=== PATIENT | male | born 1985 | race Caucasian/White ===

== ENCOUNTER 2023-08-17 06:40 | Outpatient (OUT) | payer OTHER, SELFPAY ==
[2023-08-17 07:13] LABS: Basophils Percent Auto 0.3 % (0.2-2.0); Eosinophils Absolute Auto 0.2 10^3/uL (0.0-0.7); Eosinophils Percent Auto 3.6 % (0.9-7.0); Hemoglobin 14.5 g/dL (14.0-18.0); Immature Granulocytes Abs Auto 0.02 10^3/uL (0.00-0.03); Immature Granulocytes Pct Auto 0.3 % (0.0-0.5); Lymphocytes Percent Auto 35.1 % (20.5-60.0); Mean Corpuscular HGB Conc 32.2 g/dL (29.9-35.2); Mean Corpuscular Hemoglobin 28.5 pg (25.9-34.0); Mean Corpuscular Volume 88.6 fL (80.0-94.0); Mean Platelet Volume 11.8 fL (9.5-13.5); Monocytes Absolute Auto 0.4 10^3/uL (0.3-0.8); Monocytes Percent Auto 7.3 % (1.7-12.0); Neutrophils Absolute Auto 3.1 10^3/uL (1.4-6.5); Neutrophils Percent Auto 53.4 % (43.0-75.0); Platelet Count 225 10^3/uL (150-450); Red Blood Count 5.08 10^6/uL (4.70-6.10); Red Cell Distribution Width 12.4 % (11.0-15.0); White Blood Count 5.8 10^3/uL (4.0-11.0)
[2023-08-17 07:27] LABS: Estimated Average Glucose 117 mg/dL; Glycohemoglobin A1C 5.7 % (4.5-6.2)
[2023-08-17 07:34] LABS: Alanine Aminotransferase 18 U/L (16-63); Albumin Globulin Ratio 1.1; Albumin Level 3.9 g/dL (3.4-5.0); Alkaline Phosphatase 50 U/L (46-116); Aspartate Amino Transferase 12 U/L (15-37); BUN Creatinine Ratio 11.1; Bilirubin Total 0.9 mg/dL (0.2-1.0); Calcium 9.3 mg/dL (8.5-10.1); Carbon Dioxide 27.9 mmol/L (21.0-32.0); Chloride 106 mmol/L (98-107); Chol HDL Ratio 3.5; Cholesterol 176 mg/dL (<=200); Estimated GFR (African America >60 (>=60); Estimated GFR (Non-African Ame >60 (>=60); Globulin 3.5 g/dL; Glucose 113 mg/dL (74-106); HDL Cholesterol 51 mg/dL (40-60); Potassium 3.9 mmol/L (3.5-5.1); Sodium 143 mmol/L (136-145); Total Protein 7.4 g/dL (6.4-8.2); Triglycerides 115 mg/dL (<=150)
[2023-08-18 09:11] LABS: HCV Ab Non Reactive (Non Reactive)
[2023-08-18 10:07] LABS: HIV Ab/p24 Ag Screen Non Reactive (Non Reactive)
== END 2023-08-17 06:41 | disposition home or self-care (01) ==
LOC: LAB 06:45
PROVIDERS: PCP Nurse Practitioner Primary Care; Visit Provider Nurse Practitioner Primary Care
DX: Z00.00 Encounter for general adult medical examination without abnormal findings (principal); Z11.59 Encounter for screening for other viral diseases; Z11.4 Encounter for screening for human immunodeficiency virus [HIV]; Z13.6 Encounter for screening for cardiovascular disorders
CPT/HCPCS: 36415; 80053; 80061; 83036; 85025; 86803; 87389

== ENCOUNTER 2024-08-06 17:06 | Outpatient (OUT) | payer OTHER, SELFPAY ==
--- OUTSIDE RECORDS SUMMARY | 2024-08-06 17:23 | XMS_ITS | CCD ---
Author Organization [facility] Care Team Providers Care Artificial Fly Tier Name Role Phone Unavailable Primary Care Provider Unavailabl e Medications Completed/Discontinued Medications Medication Drug Class(es) Dates Sig (Normalized) Sig (Original) escitalopram 10 mg oral tablet (1 source) Serotonin Reuptake Inhibitor Start: 07-25-2021 escitalopram oxalate (LEXAPRO) 10 mg tablet omeprazole 20 mg delayed release oral capsule (1 source) Proton Pump Inhibitor Start: 07-26-2021 omeprazole (PRILOSEC) 20 mg capsule zolpidem tartrate 10 mg oral tablet (1 source) gamma-Aminobutyri c Acid-ergic Agonist Start: 07-26-2021 zolpidem (AMBIEN) 10 mg Take 10 mg by mouth. 0 07/26/2021 Active Comment on above: Take 10 mg by mouth. Problems Problem Classification Problem Date Documented Da te Episodic/Chronic Cardiac and circulatory congenital anomalies (1 source) Congenital vascular malformation; Translations: [Congenital malformation of peripheral vascular system, unspecified] Chronic Results Test Name Value Interpretation Reference Range Facil jeff HILLon 09-08-2021 CNOV Office Visit (OTMNCA ) FREDI COLON ([id number]) 1985 M Date Time Provider Department 09/08/21 11:30 AM FADI STRONG OTMNDIONI During your visit today, we recorded the following information about you: Pulse Blood pressure Weight Height 72/minute 133/83 94.1 kg 1.778 m Ayah Winn Ma 09/08/2021 10:19 AM Signed Tobacco Use: 1 packs/day Quit 02/26/2021. Types: Cigarettes Was smoking cessation packet given? N/A - Patient is a non-smoker or quit >1 year ago. Was a referral initiated?N/A Patient is a non-smoker Fadi Strong MD 10/22/2021 10:24 PM Signed CC: Patient presents with: New Patient: Tongue mass Consultation requested by Dr. Will Orellana on 08/21/21 for an opinion regarding right tongue mass. My final recommendations will be communicated back to the requesting physician by way of shared medical record or letter via US mail HPI: Fredi Colon is a 35 year old male with PMH GERD, current smoker (1 cigar per month), who presents with tongue mass. Patient stated that the mass was a hemangioma present at . The mass was formally evaluated when he was age 9, and at that time he was told there was no concern for malignancy. He states the mass has grown in size as he's grown . He is not sure if the mass has enlarged recently because it has been present since and he has adapted well to it. He does endorse itchiness in the throat with prolonged talking which does not interfere with his daily functioning. He states no other symptoms. He denies pain, discomfort, bleeding, dysphagia, odynophagia, sore throat, ear pain, dysgeusia, dyspnea. He states that nothing about the mass bothers him. He accidentally bites it once a month on average, which does not cause any bleeding. He says he doesn't have great sleep and does snore, but was never tested for sleep apnea. He does not have any other vascular lesions on his body. He takes Prilosec daily for GERD, which manages reflux well. SocHx: current smoker (1 cigar per month), no other chewing or dipping tobacco. 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 Father recently from lymphoma. FamHx: no personal or family history of head and neck cancers. No personal history of radiation treatment. Diet: full regular diet ALLERGIES No Known Allergies Current Outpatient Medications on File Prior to Visit Medication Sig - escitalopram oxalate (LEXAPRO) 10 mg tablet - omeprazole (PRILOSEC) 20 mg capsule - zolpidem (AMBIEN) 10 mg Take 10 mg by mouth. (Patient not taking: Reported on 09/08/2021) No current facility-administered medications on file prior to visit. No past medical history on file. PAST SURGICAL HISTORY Procedure Laterality Date - UPPER ARM/ELBOW SURGERY UNLISTED Right 1994 Social History Tobacco Use - Smoking status: Former Smoker Packs/day: 1.00 Types: Cigarettes Start date: 09/08/2002 Quit date: 02/26/2021 Years since quittin.5 - Smokeless tobacco: Never Used Vaping Use - Vaping Use: Never used Substance Use Topics - Alcohol use: Not Currently Comment: 2 months since last drink - Drug use: Never Review of Systems: GENERAL: No weight loss, malaise or fevers. HEENT: Negative for frequent or significant headaches, No changes in hearing or vision, no nose bleeds or other nasal problems. Tongue mass stable in size since . NECK: Negative for goiter, pain or significant neck swelling RESPIRATORY: Negative for cough, hemoptysis, wheezing, COPD, dyspnea or shortness of breath CARDIOVASCULAR: Negative for chest pain, leg swelling, hypertension, CHF or palpitations The remainder of the review of systems is negative. PHYSICAL EXAM (detailed): Constitutional: * BP 133/83 Pulse 72 Ht 5' 10 (1.78m) Wt 207 lb 6.4 oz (94.1kg) SpO2 98% BMI 29.76 kg/(m2). * General appearance: Well developed, well nourished male without obvious deformities. Patient has a normal body habitus and is well groomed. * Communication: The patient speaks with a normal voice without hoarseness or breaks in speech. Head and Face: * Overall appearance: No evident asymmetries, obvious scars, lesions or masses. Palpation of face did not reveal any sinus tenderness. * Parotid and submandibular glands: No masses, tenderness or swelling. * Facial strength: House-Brackmann 1/6 bilaterally. Eyes: * Extraocular movements are intact bilaterally and primary gaze alignment is normal. * No evidence of ectropion present. Ears, Nose, Mouth and Throat: * External ears and nose: Normal in appearance, without scars, lesions, or masses. * Ears: Otoscopic examination demonstrates external auditory canals are normal bilaterally. The tympanic membranes are intact and mobile to pneumotoscopy bilaterally. * Nasal exam: Nasal mucosa is pink and the septum is midline, visualized turbinates a (more content not included)... Normal [facility] CT NECK SOFT TISSUE W IVCONo n 09-08-2021 CT NECK SOFT TISSUE W IVCON * * *Final Report* * * DATE OF EXAM: Sep 08 2021 9:11AM [facility] [place]13 - CT NECK SOFT TISSUE W IVCON / PROCEDURE REASON: Localized swelling, mass or lump of neck * * * * Physician Interpretation * * * * Clinical history:ENT Epic (electronic medical record) Encounter (USING CUT AND PASTE FEATURE) 08/21/2021: 35 year old male presents for evaluation of right-sided tongue mass.. ?Patient stated that the mass has been present for over 25 years he was told he had a hemangioma on his tongue about 25 years ago. ?He denies any pain or discomfort of his tongue. ?He denies any bleeding from his tongue. ?The mass has enlarged over time as he grew. ?He denies any trouble breathing or trouble swallowing. NOTE: CUTTING AND PASTING from [employer] to the dictation system appears to introduce QUESTION MENDOZA after report finalization not visible during the dictation/within the dictation system itself even if reloaded for an addendum. Presumably a glitch in coding between the systems. Inappropriateness of the QUESTION MENDOZA usually clear from the context. If indeterminate, please refer to the original report in Epic. Additionally, not responsible for any errors in the PASTED INFORMATION whether historical, contextual, typographical, grammatical, or otherwise. For REFERENCE PURPOSES only and any concerns regarding the content should be raised with the actual provider for the given Epic encounter. Technique: Enhanced neck CT with reconstructions Contrast: Omnipaque 300 Contrast Dose (cc): 100 Route of Administration: IV CT Dose-Length Product (DLP): 507 mGy*cm CT Dose Reduction Employed: Automated exposure control (AEC) Comparison:None Result: No more than mildly heterogeneously enhancing with no hypervascularity or prominent vessels superiorly exophytic right hemitongue mass favor mid to dorsal origin filling the bulk of the oral cavity eccentric to the right as well as projecting into the right oropharynx. 4 cm in width, 3.5 cm in craniocaudal dimension, and 6.5 cm in AP dimension. Numerous calcifications measuring up to 6 mm. Unremarkable visualized intracranial contents, orbits, paranasal sinuses, mastoid air cells and middle ears, remaining oral cavity/pharynx, larynx, trachea, superior mediastinum, lung apices, glandular structures, and vessels. No lymphadenopathy by size criteria, morphology, or number. Straightening of the normal cervical lordosis with mild degenerative changes of the cervical spine without high-grade canal or neural foraminal compromise. No lytic or blastic process. 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 [employer]: [employer] Transcribe Date/Time: Sep 08 2021 10:20A Dictated by : FALLON MARTINEZ MD This examination was interpreted and the report reviewed and electronically signed by: FALLON MARTINEZ MD on Sep 08 2021 10:31AM EST [id number] Normal [facility] CNOVon 08-21-2021 CNOV Office Visit (OTOLMN ) JANNETFREDI R ([id number]) 1985 M Date Time Provider Department 08/21/21 1:35 PM WILL ORELLANA OTOLMN During your visit today, we recorded the following information about you: Kailey Vazquez Ma 08/21/2021 1:21 PM Signed Tobacco Use: Quit 02/26/2021. Types: Cigarettes, Cigars Was smoking cessation packet given? N/A - Patient is a non-smoker or quit >1 year ago. Was a referral initiated?N/A Patient is a non-smoker Will Orellana MD 08/21/2021 2:02 PM Signed IMPRESSION 35-year-old male with vascular malformation of the right hemitongue extending towards the base of tongue without any airway compromise. RECOMMENDATION/PLAN I recommend obtaining a CT neck with contrast to further evaluate his tongue mass. I also recommend a referral with head neck surgery for possible surgical excision. Chief Complaint Right tongue mass History of Present Illness Fredi Davis Jannet is a 35 year old male presents for evaluation of right-sided tongue mass.. Patient stated that the mass has been present for over 25 years he was told he had a hemangioma on his tongue about 25 years ago. He denies any pain or discomfort of his tongue. He denies any bleeding from his tongue. The mass has enlarged over time as he grew. He denies any trouble breathing or trouble swallowing. PMhx: GERD Pshx: none Social Hx: none CURRENT OUTPATIENT MEDICATIONS Current Outpatient Medications on File Prior to Visit Medication Sig - escitalopram oxalate (LEXAPRO) 10 mg tablet - omeprazole (PRILOSEC) 20 mg capsule - zolpidem (AMBIEN) 10 mg Take 10 mg by mouth. No current facility-administered medications on file prior to visit. ALLERGIES ALLERGIES No Known Allergies The remainder of the patient's history and review of systems is on the outpatient questionaire which was reviewed by me and placed in the outpatient chart. PHYSICAL EXAMINATION Appearance: General examination of the patient's external face, head and neck reveals no abnormalities. The patient is not retrognathic The patient's voice is strong and clear and they communicate easily. Ears: Exam of the ears revealed normal appearing external auditory canals, tympanic membranes, and middle ears. No signs of infection or fluid were seen. Nose: External nasal exam was normal. Throat: There were no lesions to visualization or palpation of the lips, cheeks, gums, floor of mouth, hard and soft palate, tonsillar pillars or posterior pharyngeal wall. There is a large vascular mass involving the dorsal surface right hemitongue. The mass appears to be immediately under the tongue mucosa. It extends posteriorly towards the base of tongue. It does not appear to involve the right lateral tongue. The mass does not pass midline. Neck: Palpation of the neck revealed no adenopathy, salivary gland masses or asymmetry, or thyroid masses or enlargement. Procedure Flexible laryngoscopy was performed because of the following indication: hyperactive gag: After spraying the nose with xylocaine/neosynephrine , the flexible scope was placed in a transnasal fashion. The nasopharynx, oropharynx, hypopharynx including the pyriform sinuses were normal. With the tongue retracted, I was able to see the mass at the right base of tongue. With the tongue extended, the lingual tonsil appears to be clear without any involvement by the mass. The vallecula is otherwise clear as well. The larynx itself showed no lesions. The vocal cords moved well bilaterally. Will Orellana MD Medical Decision Making: Problems: Low: Stable chronic illness Data: Unique test(s) ordered: 1 Risk: Low: Low risk from testing/treatment Medical Decision Making Level: 3 - Low Answers for HPI/ROS submitted by the patient on 08/20/2021 Fatigue: Yes Post-Nasal Drip: Yes Snoring: Yes Watering Eyes: Yes Heartburn: Yes Burping: Yes Indigestion: Yes Headaches: Yes Sneezing: Yes Itchy Nose: Yes Itchy Eyes: Yes Allergies: Yes Referring Provider: SELF [200] Allergies As of Date: 08/21/2021 (No Known Allergies) Date Reviewed: 08/21/2021 Reviewed by: Kailey Vazquez Ma - Fully Assessed Reason for Visit: New Patient [172] Cmt: hemangioma on tongue, right Primary Visit Diagnosis:Tongue mass [K14.8] Other Visit Diagnosis:Localized swelling, mass or lump of neck [R22.1] Order(s):CT NECK SOFT TISSUE W IVCON [[id number]] Order #: [id number] FUTURE iv contrast (will be provided with radiology test)Inject 1 Each intravenously one time only for [address] Neck W IVCON No IV access, insert saline lock prior to the sedation, infusion, injection for imaging exam. Discontinue saline lock post exam. If Pt. has a central line or IVAD, may access for administration according to line specific nursing protocol. Once exam is complete flush line and de-access according to line specific nursing protocol i (more content not included)... Normal [facility] Vital Signs Date Time Vital Sign Value Performing Clinician Normi kendra 09-08-2021 10:16-0500 Body height 177.8 cm Fadi Strong MD Work Phone: [facility] 09-08-2021 10:16-0500 Body weight 94.08 kg Fadi Strong MD Work Phone: [facility] 09-08-2021 10:16-0500 Diastolic blood pressure 83 mm[Hg] Fadi Strong MD Work Phone: [facility] 09-08-2021 10:16-0500 Heart rate 72 /min Fadi Strong MD Work Phone: [facility] 09-08-2021 10:16-0500 SaO2% (BldA) [Mass fraction] 98 % Fadi Strong MD Work Phone: [facility] 09-08-2021 10:16-0500 Systolic blood pressure 133 mm[Hg] Fadi Strong MD Work Phone: [facility] Encounters Encounter Date Encounter Type Care Provider Facility Start: 09-08-2021 End: 09-08-2021 Patient encounter procedure Fadi Strong MD Work Phone: [facility] Comment on above: Congenital vascular malformation (Primary Dx) Plan of Treatment Date Care Activity Detail Author Start: 09-22-2025 LIPID SCREEN LIPID SCREEN [facility] Start: 03-29-2021 Influenza vaccination INFLUENZA (#1) [facility] Start: 11-19-2003 Urine microalbumin profile DTAP,TDAP ,TD (1 - Tdap) [facility] Start: 2002 HEPATITIS C SCREENING HEPATITIS C SC REENING [facility] Start: 2002 HIV SCREENING HIV SCREENING [facility] Start: 1996 Adult depression [facility] assessment DEPRESSION SCREENING [facility] Start: 1989 COVID-19 VACCINE (1) COVID-19 VACCIN E (1) [facility] Payers Date Payer Category Payer Unknown [employer] PPO [id number] 2017-Present [phone] [facility] [id number] [place] [address] PPO [id number] Social History Date Type Detail Facility Start: 08-21-2021 Tobacco smoking stat us NHIS Ex-smoker [facility] Start: 09-08-2002 End: 02-26-2021 History of tobacco use Current smoker [facility] Start: 09-08-2002 End: 02-26-2021 History of tobacco use Cigarette Smoker [facility] Start: 08-21-2021 Cigarettes smoked cu rrent (pack per day) - Reported [address] [facility] Start: 08-21-2021 Tobacco use and exposure Smoke less tobacco non-user [facility] Start: 09-08-2021 Alcohol intake Ex-drinker (finding) [facility] Start: 08-21-2021 History SDOH Alcohol Comment 2 months since last drink [facility] Start: 1985 Sex Assigned At Male C [facility] Start: 08-09-2021 End: 09-08-2021 Exposure to SARS-CoV-2 (event) Not sure [facility] Progress note 09-08-2021 Note Date & Type Note Facility 09-08-2021 Note HNO ID: [id number] Author: Fadi Strong MD Service: ? Author Type: Physician Type: Progress Notes Filed: 10/22/2021 10:24 PM Note Text: CC: Patient presents with: New Patient: Tongue mass Consultation requested by Dr. Will Orellana on 08/21/21 for an opinion regarding right tongue mass. My final recommendations will be communicated back to the requesting physician by way of shared medical record or letter via [place] mail HPI: Fredi Colon is a 35 year old male with PMH GERD, current smoker (1 cigar per month), who presents with tongue mass. Patient stated that the mass was a hemangioma present at . The mass was formally evaluated when he was age 9, and at that time he was told there was no concern for malignancy. He states the mass has grown in size as he's grown . He is not sure if the mass has enlarged recently because it has been present since and he has adapted well to it. He does endorse itchiness in the throat with prolonged talking which does not interfere with his daily functioning. He states no other symptoms. He denies pain, discomfort, bleeding, dysphagia, odynophagia, sore throat, ear pain, dysgeusia, dyspnea. He states that nothing about the mass bothers him. He accidentally bites it once a month on average, which does not cause any bleeding. He says he doesn't have great sleep and does snore, but was never tested for sleep apnea. He does not have any other vascular lesions on his body. He takes Prilosec daily for GERD, which manages reflux well. SocHx: current smoker (1 cigar per month), no other chewing or dipping tobacco. 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 Father recently from lymphoma. FamHx: no personal or family history of head and neck cancers. No personal history of radiation treatment. Diet: full regular diet ALLERGIES No Known Allergies Current Outpatient Medications on File Prior to Visit Medication Sig - escitalopram oxalate (LEXAPRO) 10 mg tablet - omeprazole (PRILOSEC) 20 mg capsule - zolpidem (AMBIEN) 10 mg Take 10 mg by mouth. (Patient not taking: Reported on 09/08/2021) No current facility-administered medications on file prior to visit. No past medical history on file. PAST SURGICAL HISTORY Procedure Laterality Date - UPPER ARM/ELBOW SURGERY UNLISTED Right 1994 Social History Tobacco Use - Smoking status: Former Smoker Packs/day: 1.00 Types: Cigarettes Start date: 09/08/2002 Quit date: 02/26/2021 Years since quittin.5 - Smokeless tobacco: Never Used Vaping Use - Vaping Use: Never used Substance Use Topics - Alcohol use: Not Currently Comment: 2 months since last drink - Drug use: Never Review of Systems: GENERAL: No weight loss, malaise or fevers. HEENT: Negative for frequent or significant headaches, No changes in hearing or vision, no nose bleeds or other nasal problems. Tongue mass stable in size since . NECK: Negative for goiter, pain or significant neck swelling RESPIRATORY: Negative for cough, hemoptysis, wheezing, COPD, dyspnea or shortness of breath CARDIOVASCULAR: Negative for chest pain, leg swelling, hypertension, CHF or palpitations The remainder of the review of systems is negative. PHYSICAL EXAM (detailed): Constitutional: * BP 133/83 Pulse 72 Ht 5' 10 (1.78m) Wt 207 lb 6.4 oz (94.1kg) SpO2 98% BMI 29.76 kg/(m2). * General appearance: Well developed, well nourished male without obvious deformities. Patient has a normal body habitus and is well groomed. * Communication: The patient speaks with a normal voice without hoarseness or breaks in speech. Head and Face: * Overall appearance: No evident asymmetries, obvious scars, lesions or masses. Palpation of face did not reveal any sinus tenderness. * Parotid and submandibular glands: No masses, tenderness or swelling. * Facial strength: House-Brackmann 1/6 bilaterally. Eyes: * Extraocular movements are intact bilaterally and primary gaze alignment is normal. * No evidence of ectropion present. Ears, Nose, Mouth and Throat: * External ears and nose: Normal in appearance, without scars, lesions, or masses. * Ears: Otoscopic examination demonstrates external auditory canals are normal bilaterally. The tympanic membranes are intact and mobile to pneumotoscopy bilaterally. * Nasal exam: Nasal mucosa is pink and the septum is midline, visualized turbinates are normal in appearance. * Mastication: The teeth appear healthy. The lips and gums are without lesions. * Oral cavity and oropharynx: Large exophytic mass on right dorsal tongue, occupying hemitongue, extending from anterior to posterior, blue tinged, no bleeding, no lesions. There is a similar, smaller exophytic mass on the right lateral tongue contiguous with dorsal mass. The oral mucosa, hard and soft palates, tongue, tonsil area, and posterior pharyngeal mucosa are without lesions or nota (more content not included)... [facility] Progress note 09-08-2021 Note Date & Type Note Facility 09-08-2021 Note HNO ID: [id number] Author: RT Maru(R) Service: Radiology Author Type: Technologist Type: Progress Notes Filed: 09/08/2021 9:12 AM Note Text: Radiology Service Progress Note PATIENT NAME: Fredi Colon DATE OF SERVICE: September 08, 2021 TIME: 9:11 AM PATIENT IDENTITY VERIFICATION COMPLETED USING TWO (2) IDENTIFIERS: Name and Date of confirmed by patient verbally and Name and Date of confirmed by identification band. FALL SCREENING: Has the patient had 2 falls in the last year or 1 fall with injury or currently using an Ambulatory Assistive Device (Walker, Cane, Wheelchair, Crutches, etc.)? No PATIENT GENDER DATA: Male PATIENT RELEVANT IMPLANT DATA REVIEWED: Yes RADIOLOGY DEPARTMENT: CT; Exam(s) Completed: Neck PERIPHERAL IV DATA: Site assessment: Clean,Dry and Intact, Site disposition Discontinued SIGNED BY: RT Maru(R) September 08, 2021 9:11 AM [facility] Progress note 09-08-2021 Note Date & Type Note Facility 09-08-2021 Note HNO ID: [id number] Author: Sunita Banegas RN Service: Radiology Author Type: Registered Nurse Type: Progress Notes Filed: 09/08/2021 9:04 AM Note Text: Radiology Service Progress Note DATE OF SERVICE: September 08, 2021 TIME: 9:00 AM PATIENT WEIGHT: 202LBS PATIENT IDENTITY VERIFICATION COMPLETED USING TWO (2) STANDARD IDENTIFIERS: Name and Date of confirmed by patient verbally and Name and Date of confirmed by identification band. FALL SCREENING: Has the patient had 2 falls in the last year or 1 fall with injury or currently using an Ambulatory Assistive Device (Walker, Cane, Wheelchair, Crutches, etc.)? No PATIENT GENDER DATA: Male ALLERGIES: Reviewed and unchanged CONTRAST ALLERGY: No EXAM: CT -CONTRAST INDUCED NEPHROPATHY RISK FACTORS: Not applicable CREATININE: No results found for: CREAT, EGFROTH, EGFRAA P.O.C.T. RESULTS: N/A September 08, 2021 TREATMENT: No Hydration needed. IV SITE: Ambulatory: A peripheral IV was started in the Right antecubital site with a Angio cath: 20 gauge. and A Saline lock was inserted per protocol IV SITE APPEARANCE: Clean,Dry and Intact SIGNATURE: Sunita Banegas RN PATIENT NAME: Fredi Colon DATE: September 08, 2021 TIME: 9:00 AM [facility] History of Present illness Narrative 09-08-2021 Fadi Strong MD - 09/08/2021 10:41 AM EST Note Date & Type Note Facility 09-08-2021 History of Presen t illness Narrative CC: Patient presents with: New Patient: Tongue mass Consultation requested by Dr. Will Orellana on 08/21/21 for an opinion regarding right tongue mass. My final recommendations will be communicated back to the requesting physician by way of shared medical record or letter via [place] mail HPI: Fredi Colon is a 35 year old male with PMH GERD, current smoker (1 cigar per month), who presents with tongue mass. Patient stated that the mass was a hemangioma present at . The mass was formally evaluated when he was age 9, and at that time he was told there was no concern for malignancy. He states the mass has grown in size as he's grown . He is not sure if the mass has enlarged recently because it has been present since and he has adapted well to it. He does endorse itchiness in the throat with prolonged talking which does not interfere with his daily functioning. He states no other symptoms. He denies pain, discomfort, bleeding, dysphagia, odynophagia, sore throat, ear pain, dysgeusia, dyspnea. He states that nothing about the mass bothers him. He accidentally bites it once a month on average, which does not cause any bleeding. He says he doesn't have great sleep and does snore, but was never tested for sleep apnea. He does not have any other vascular lesions on his body. He takes Prilosec daily for GERD, which manages reflux well. SocHx: current smoker (1 cigar per month), no other chewing or dipping tobacco. 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 Father recently from lymphoma. FamHx: no personal or family history of head and neck cancers. No personal history of radiation treatment. Diet: full regular diet ALLERGIES No Known Allergies Current Outpatient Medications on File Prior to Visit Medication Sig escitalopram oxalate (LEXAPRO) 10 mg tablet omeprazole (PRILOSEC) 20 mg capsule zolpidem (AMBIEN) 10 mg Take 10 mg by mouth. (Patient not taking: Reported on 09/08/2021) No current facility-administered medications on file prior to visit. No past medical history on file. PAST SURGICAL HISTORY Procedure Laterality Date UPPER ARM/ELBOW SURGERY UNLISTED Right 1994 Social History Tobacco Use Smoking status: Former Smoker Packs/day: 1.00 Types: Cigarettes Start date: 09/08/2002 Quit date: 02/26/2021 Years since quittin.5 Smokeless tobacco: Never Used Vaping Use Vaping Use: Never used Substance Use Topics Alcohol use: Not Currently Comment: 2 months since last drink Drug use: Never Review of Systems: GENERAL: No weight loss, malaise or fevers. HEENT: Negative for frequent or significant headaches, No changes in hearing or vision, no nose bleeds or other nasal problems. Tongue mass stable in size since . NECK: Negative for goiter, pain or significant neck swelling RESPIRATORY: Negative for cough, hemoptysis, wheezing, COPD, dyspnea or shortness of breath CARDIOVASCULAR: Negative for chest pain, leg swelling, hypertension, CHF or palpitations The remainder of the review of systems is negative. PHYSICAL EXAM (detailed): Constitutional: * BP 133/83 Pulse 72 Ht 5' 10 (1.78m) Wt 207 lb 6.4 oz (94.1kg) SpO2 98% BMI 29.76 kg/(m^2). * General appearance: Well developed, well nourished male without obvious deformities. Patient has a normal body habitus and is well groomed. * Communication: The patient speaks with a normal voice without hoarseness or breaks in speech. Head and Face: * Overall appearance: No evident asymmetries, obvious scars, lesions or masses. Palpation of face did not reveal any sinus tenderness. * Parotid and submandibular glands: No masses, tenderness or swelling. * Facial strength: House-Brackmann 1/6 bilaterally. Eyes: * Extraocular movements are intact bilaterally and primary gaze alignment is normal. * No evidence of ectropion present. Ears, Nose, Mouth and Throat: * External ears and nose: Normal in appearance, without scars, lesions, or masses. * Ears: Otoscopic examination demonstrates external auditory canals are normal bilaterally. The tympanic membranes are intact and mobile to pneumotoscopy bilaterally. * Nasal exam: Nasal mucosa is pink and the septum is midline, visualized turbinates are normal in appearance. * Mastication: The teeth appear healthy. The lips and gums are without lesions. * Oral cavity and oropharynx: Large exophytic mass on right dorsal tongue, occupying hemitongue, extending from anterior to posterior, blue tinged, no bleeding, no lesions. There is a similar, smaller exophytic mass on the right lateral tongue contiguous with dorsal mass. The oral mucosa, hard and soft palates, tongue, tonsil area, and posterior pharyngeal mucosa are without lesions or notable asymmetries. Moist mucus membranes present. * Larynx: Base of tongue, valleculae, epiglottis and false vocal folds are normal in appearance per mirror exam. Neck: * Neck: The neck appears symmetric without scars, and on palpation is without masses, lymphadenopathy or crepitus. Trachea is midline. * Thyroid: There are no masses, thyromegaly, thyroid nodules or tenderness on palpation. Neurologic: * Mental status: Patient is alert and oriented to person, place and time Mood and affect are appropriate IMAGIN09/08/21 CT NECK Result: No more than mildly heterogeneously enhancing with no hypervascularity or prominent vessels superiorly exophytic right hemitongue mass favor mid to dorsal origin filling the bulk of the oral cavity eccentric to the right as well as projecting into the right oropharynx. 4 cm in width, 3.5 cm in craniocaudal dimension, and 6.5 cm in AP dimension. Numerous calcifications measuring up to 6 mm. No LAD. MEDICAL DECISION MAKING: Fredi Colon is a 35 year old male with PMH of GERD who has right tongue mass present at , a vascular malformation. He endorses no bleeding, pain, discomfort, dysphagia, dysarthria, choking, dyspnea, or growth in mass size. Physical exam shows blue tinged right hemitongue mass not extending to floor of mouth consistent with venous malformation. CT 09/08/21 shows heterogeneous mass projecting into oropharynx. PLAN: - This is a congenital vascular malformation, given pt is asymptomatic, mass was present at , and no noticeable growth in size. Not worrisome for a malignant process. - Given large size, recommend MRI for higher resolution imaging to determine depth of the mass - Discussed with patient potential treatment plans - Surveillance, reasonable given no symptoms whatsoever and therapy would cause significant functional morbidity. - Sclerotherapy. This is an option for macrocystic lesions. Injection with scarring material into mass can lead to scarring and shrinkage. This, however, may be associated with higher rates of pain in the long-term. If patient desires sclerotherapy, would consult to interventional radiology. - Surgery to excise the lesion with or without need for reconstruction. Options for reconstruction include skin graft, locoregional tissue advancement, or free tissue transfer such as radial forearm free flap. The extent of resection and reconstruction would be determined by MRI for higher resolution of soft tissues. This would help in terms of counseling regarding the functional morbidity. - Recommend MRI if patient is interested in pursuing sclerotherapy or surgery. - Patient understands and wishes to think about these options. - Follow up as needed. If any questions or concerns arise prior to the patient's next appointment, he has been instructed to contact the clinic. All questions were answered, and the patient is in agreement with this plan. SIGNATURE: Patience Zepeda DATE: September 08, 2021 TIME: 10:42 AM TEACHING PHYSICIAN ADDENDUM: This patient was seen and examined with the medical student. There were no encounter diagnoses. We discussed the diagnosis, treatment options, and plan of care. The above note reflects the entirety of evaluation and work performed by both the medical student and myself. I reviewed the patient's history, repeated the physical exam, reviewed relevant imaging and laboratory values and formulated the treatment plan. I have read, reviewed, edited and now agree with the above note. I was present for the clinical encounter as documented above by the medical student. Patience Zepeda and I have reviewed the note and agree with the findings. Medical Decision Making: Problems: Low: Stable chronic illness Data: Unique source(s) for external note(s) reviewed: 1 Unique test result(s) reviewed: 1 Independent interpretation of test from other physician/QHCP Risk: Moderate: Decision on elective major surgery w/o risk factors High: High risk from testing/treatment Medical Decision Making Level: 4 - Moderate SIGNATURE: Fadi Strong MD DATE: September 08, 2021 TIME: 10:42 AM documented in this encounter [facility] Nurse Note 09-08-2021 Ayah Winn Ma - 09/08/2021 10:13 AM EST Note Date & Type Note Facility 09-08-2021 Nurse Note Tobacco Use: 1 packs/day Quit 02/26/2021. Types: Cigarettes Was smoking cessation packet given? N/A - Patient is a non-smoker or quit >1 year ago. Was a referral initiated?N/A Patient is a non-smoker documented in this encounter [facility] Progress note 08-21-2021 Note Date & Type Note Facility 08-21-2021 Note HNO ID: [id number] Author: Will Orellana MD Service: ? Author Type: Physician Type: Progress Notes Filed: 08/21/2021 2:02 PM Note Text: IMPRESSION 35-year-old male with vascular malformation of the right hemitongue extending towards the base of tongue without any airway compromise. RECOMMENDATION/PLAN I recommend obtaining a CT neck with contrast to further evaluate his tongue mass. I also recommend a referral with head neck surgery for possible surgical excision. Chief Complaint Right tongue mass History of Present Illness Fredi Colon is a 35 year old male presents for evaluation of right-sided tongue mass.. Patient stated that the mass has been present for over 25 years he was told he had a hemangioma on his tongue about 25 years ago. He denies any pain or discomfort of his tongue. He denies any bleeding from his tongue. The mass has enlarged over time as he grew. He denies any trouble breathing or trouble swallowing. PMhx: GERD Pshx: none Social Hx: none CURRENT OUTPATIENT MEDICATIONS Current Outpatient Medications on File Prior to Visit Medication Sig - escitalopram oxalate (LEXAPRO) 10 mg tablet - omeprazole (PRILOSEC) 20 mg capsule - zolpidem (AMBIEN) 10 mg Take 10 mg by mouth. No current facility-administered medications on file prior to visit. ALLERGIES ALLERGIES No Known Allergies The remainder of the patient's history and review of systems is on the outpatient questionaire which was reviewed by me and placed in the outpatient chart. PHYSICAL EXAMINATION Appearance: General examination of the patient's external face, head and neck reveals no abnormalities. The patient is not retrognathic The patient's voice is strong and clear and they communicate easily. Ears: Exam of the ears revealed normal appearing external auditory canals, tympanic membranes, and middle ears. No signs of infection or fluid were seen. Nose: External nasal exam was normal. Throat: There were no lesions to visualization or palpation of the lips, cheeks, gums, floor of mouth, hard and soft palate, tonsillar pillars or posterior pharyngeal wall. There is a large vascular mass involving the dorsal surface right hemitongue. The mass appears to be immediately under the tongue mucosa. It extends posteriorly towards the base of tongue. It does not appear to involve the right lateral tongue. The mass does not pass midline. Neck: Palpation of the neck revealed no adenopathy, salivary gland masses or asymmetry, or thyroid masses or enlargement. Procedure Flexible laryngoscopy was performed because of the following indication: hyperactive gag: After spraying the nose with xylocaine/neosynephrine, the flexible scope was placed in a transnasal fashion. The nasopharynx, oropharynx, hypopharynx including the pyriform sinuses were normal. With the tongue retracted, I was able to see the mass at the right base of tongue. With the tongue extended, the lingual tonsil appears to be clear without any involvement by the mass. The vallecula is otherwise clear as well. The larynx itself showed no lesions. The vocal cords moved well bilaterally. Will Orellana MD Medical Decision Making: Problems: Low: Stable chronic illness Data: Unique test(s) ordered: 1 Risk: Low: Low risk from testing/treatment Medical Decision Making Level: 3 - Low Answers for HPI/ROS submitted by the patient on 08/20/2021 Fatigue: Yes Post-Nasal Drip: Yes Snoring: Yes Watering Eyes: Yes Heartburn: Yes Burping: Yes Indigestion: Yes Headaches: Yes Sneezing: Yes Itchy Nose: Yes Itchy Eyes: Yes Allergies: Yes [facility] Evaluation note Note Date & Type Note Facility Evaluation note Diagnosis Congenital vascular malformation- Primary Congenital anomaly of the peripheral vascular system, unspecified site documented in this encounter [facility] Summary Purpose Family History No Family History Records Found Advance Directives No Advanced Directives Records Found Additional Source Comments (unrecognized sect ion and content) No Status Records Found INFORMATION SOURCE (unrecogn ized section and content) DATE CREATED AUTHOR 10/22/2021 [facility] Source Comments (unrecognize d section and content) In the event this informatio n is protected by the Federal Confidentiality of Alcohol and Drug Abuse Patient Records regulations: The Federal rules restrict any use of the information to criminally investigate or prosecute any alcohol or drug abuse patient.[facility] Reason for Visit (unrecogniz ed section and content) Reason Comments New Patient Tongue mass FOR RECORDS PERTAINING TO PATIENTS WHO ARE OR HAVE BEEN ENROLLED IN A CHEMICAL DEPENDENCY/SUBSTANCEABUSE PROGRAM, SOME INFORMATION MAY BE OMITTED. This clinical summary was aggregated from multiple sources. Caution should be exercised in using it in the provision of clinical care. This summary normalizes information from multiple sources, and as a consequence, information in this document may materially change the coding, format and clinical context of patient data. In addition, data may be omitted in some cases. CLINICAL DECISIONS SHOULD BE BASED ON THE PRIMARY CLINICAL RECORDS. [facility]. provides no warranty or guarantee of the accuracy or completeness of information in this document.
--- NOTE | 2024-08-06 17:25 | XR_ITS ---
The [address] [address] Patient Name: FREDI POWER MRN: [id number] date: 1985 Sex: M Assigned Patient Location: [facility] Current Patient Location: Accession/Order Number: [id number] Exam Date: 08/06/2024 17:15 Report Date: 08/07/2024 08:39 At the request of: ZHOU PABLO Procedure: XR acute abdomen series EXAMINATION: XR acute abdomen series HISTORY: Irritable bowel, K58.9 COMPARISON: No relevant comparison available. FINDINGS: LUNGS: No infiltrate, pneumothorax, or pleural effusion. MEDIASTINUM: No abnormal widening. BOWEL GAS PATTERN: Non-obstructed. Normal bowel gas pattern. FREE AIR: None. CALCIFICATIONS: None suspicious. BONES: No fracture or visible bone lesion. Mild curvature of thoracic and lumbar spine. OTHER: Negative. XR/XR acute abdomen series IMPRESSION: 1. No acute cardiopulmonary process. 2. Normal bowel gas pattern. No suspicious abdominal or pelvic findings. Electronically authenticated by: DEA GAMBOA Date: 08/07/2024 08:39
--- NOTE | 2024-08-06 17:25 | XR_ITS ---
The [place] [id number] Patient Name: FREDI POWER MRN: [id number] date: 1985 Sex: M Assigned Patient Location: RAD Current Patient Location: [facility] Accession/Order Number: [id number] Exam Date: 08/06/2024 17:15 Report Date: 08/07/2024 08:40 At the request of: ZHOU PABLO Procedure: XR cervical spine 2-3V EXAMINATION: XR cervical spine 2-3V HISTORY: Cervical Radiculopathy, M54.12 COMPARISON: No relevant comparison available. FINDINGS: BONES: No significant spondylosis, scoliosis, fracture, or visible bony lesion. DISC SPACES: Minimal narrowing C3-4. PARASPINOUS: Negative. No paraspinous abnormality is seen. OTHER: Negative. XR/XR cervical spine 2-3V IMPRESSION: 1. No appreciable acute abnormality. 2. Minimal degenerative changes. Electronically authenticated by: DEA GAMBOA Date: 08/07/2024 08:40
== END 2024-08-06 17:07 | disposition home or self-care (01) ==
LOC: LAB 17:08 → RAD 17:11
PROVIDERS: PCP Family Medicine; Visit Provider Family Medicine
DX: K58.9 Irritable bowel syndrome, unspecified (principal); M54.12 Radiculopathy, cervical region; M50.30 Other cervical disc degeneration, unspecified cervical region
CPT/HCPCS: 72040; 74022

== ENCOUNTER 2024-11-21 08:55 | Outpatient (OUT) | payer OTHER, SELFPAY ==
--- NOTE | 2024-11-21 | US_ITS ---
[place] [id number] Patient Name: FREDI POWER MRN: [id number] date: 1985 Sex: M Assigned Patient Location: US Current Patient Location: Accession/Order Number: [id number] Exam Date: 11/23/2024 12:38 Report Date: 11/23/2024 12:39 At the request of: ZHOU PABLO MD Procedure: US right upper quadrant LIMITED ABDOMINAL ULTRASOUND: CLINICAL HISTORY: elevated billirubin R17 COMPARISON: None TECHNIQUE: Grayscale and color Doppler images of the right upper quadrant organs were obtained. FINDINGS: Pancreas: Visualized portions appear unremarkable. Liver: Unremarkable. Gallbladder: Unremarkable. CBD: 4 mm RT KIDNEY: No Hydronephrosis US/US right upper quadrant IMPRESSION: NO ACUTE PROCESS. . Impression dictated by: Buddy King Jr., D.O. 11/23/2024 12:39 PM Dictation Location: [place] [address] Electronically authenticated by: [id number] Y Date: 11/23/2024 12:39
== END 2024-11-21 08:56 | disposition home or self-care (01) ==
LOC: US 08:56
PROVIDERS: PCP Family Medicine; Visit Provider Family Medicine
DX: R17 Unspecified jaundice (principal)
CPT/HCPCS: 76705

== ENCOUNTER 2024-12-03 12:49 | Outpatient (OUT) | payer OTHER, SELFPAY ==
[2024-12-03 14:28] LABS: Alanine Aminotransferase 62 U/L (16-63); Albumin Globulin Ratio 1.3; Albumin Level 3.8 g/dL (3.4-5.0); Alkaline Phosphatase 43 U/L (46-116); Aspartate Amino Transferase 26 U/L (15-37); Bilirubin Direct 0.2 mg/dL (0.0-0.2); Bilirubin Total 1.6 mg/dL (0.2-1.0); Globulin 2.9 g/dL; Total Protein 6.7 g/dL (6.4-8.2)
== END 2024-12-03 12:50 | disposition home or self-care (01) ==
LOC: LAB 12:50
PROVIDERS: PCP Family Medicine; Visit Provider Family Medicine
DX: R17 Unspecified jaundice (principal)
CPT/HCPCS: 36415; 80076

== ENCOUNTER 2025-03-05 15:56 | Outpatient (OUT) | payer OTHER, SELFPAY ==
--- OUTSIDE RECORDS SUMMARY | 2024-11-23 15:40 | XMS_ITS ---
Author Organization [facility] in [place] Address [address] [place] [address] Care Team Providers Care Home Care Coordinator Name Role Phone Merrick Gaona Primary Care Provider [phone] REASON FOR VISIT US results Encounters Encounter Location Date Provider Diagnosis [facility] [address] [facility] [place] [address] 11/23/2024 Merrick Gaona Plan Of Treatment No Information Progress Notes * Neo COLONDOB:1985 (39 yo M)Acc No.[id number]:11/23/2024 Patient: Neo BARLOW :1985 A ge:39 Y S ex:Male Address:[address], [facility] [place], [address] * true * Date: Generated for Roque meyers/Clemencia/eTransmitting on: 03/05/2025 03:58 PM EDT
--- OUTSIDE RECORDS SUMMARY | 2024-12-03 10:52 | XMS_ITS ---
Author Organization [facility] in [place] Address [address] [place] [address] Care Team Providers Care Quality Worker Name Role Phone Merrick Gaona Primary Care Provider [phone] REASON FOR VISIT lab results Encounters Encounter Location Date Provider Diagnosis [facility] [address] [facility] [place] [address] 12/03/2024 Merrick Gaona Plan Of Treatment No Information Progress Notes * Neo COLONDOB:1985 (39 yo M)Acc No.[id number]:12/03/2024 Patient: Neo BARLOW :1985 A ge:39 Y S ex:Male Address:[address], [place], [address] * true * Date: Generated for Roque meyers/Clemencia/eTransmitting on: 03/05/2025 03:58 PM EDT
--- OUTSIDE RECORDS SUMMARY | 2025-03-03 12:30 | XMS_ITS ---
Author Organization [facility] in [place] Address [address] [place] [address] Care Team Providers Care Industrial Trainer Name Role Phone Merrick Gaona Primary Care Provider [phone] Allergies No Known Allergies REASON FOR VISIT spot on knee swollen Medications Medication SIG (Take, Route, Frequency, Duration) Notes Start Date End Date Status Omeprazole 40 MG 1 capsule 30 minutes before morning meal Orally Once a day for 30 days 06/10/2024 Active Metoprolol Tartrate 75 MG 1 tablet with food Orally Twice a day for 30 days 06/10/2024 Active Meloxicam 15 MG 1 tablet Orally Once a day for 30 days 03/03/2025 Active Amoxicillin-Pot Clavulanate 875-125 MG 1 tablet Orally every 12 hrs for 10 days 03/03/2025 Active Social History Tobacco Use: Social History Observation Description Date Details (start date - stop date) Never Smoker NA - NA Tobacco Control (Standard) Question Answer Notes Tobacco use: Nonsmoker AUDIT-C (Standard) Question Answer Notes Did you have a drink containing alcohol in the p ast year? No Points 0 Interpretation Negative Problems Problem Type SNOMED Code ICD Code Onset Dates Problem Status W/U Status Risk Notes Problem Leg pain (58585047) Leg pain (M79.606) Active confirmed Problem Lymphadenitis , chronic (I88.1) Active confirmed Vital Signs Weight 197 lbs 03/03/2025 Height 70 in 03/03/2025 Blood pressure systolic 144 mm Hg 03/03/20 25 Blood pressure diastolic 96 mm Hg 025 BMI 28.26 kg/m2 03/03/2025 Encounters Encounter Location Date Provider Diagnosis [facility] [address] [place] [address] 03/03/2025 Merrick Hoy Leg pain, right M79.604 ; Lymphadenitis, chronic I88.1 and Lymphadenitis, acute L04.9 Assessments Encounter Date Diagnosis (ICD Code) Assessment Notes Treatment Notes Treatment Clinical Notes Section Notes 03/03/2025 Leg pain, right (ICD-10 - M79.604) 03/03/2025 Lymphadenitis, chronic (ICD-10 - I88.1) 03/03/2025 Lymphadenitis, acute (ICD-10 - L04.9) Plan Of Treatment Medication Medication Name Sig Start Date Stop Date Notes Diclofenac Sodium 75 MG 1 tablet as need ed Orally Twice a day 08/06/2024 Metoprolol Tartrate 75 MG 1 tablet with food Orally Twice a day for 30 days 06/10/2024 Meloxicam 15 MG 1 tablet Orally Once a day for 30 days 03/03/2025 Amoxicillin-Pot Clavulanate 875-125 MG 1 tablet Orally every 12 hrs for 10 days 03/03/2025 Pending Test Test Name Order Date XR TIB_FIB RT 2V 03/03/2025 Progress Notes * Neo COLONDOB:1985 (39 yo M)Acc No.[id number]:03/03/2025 Progress Note Patient: Neo BARLOW Provider: Blanac Gaona ([facility])MD :1985 A ge:39 Y S ex:Male Date:03/03/2025 Address:[address] [place] [address], [id number] Check In:04:18 PM ESTCheck O ut:04:58 PM EST Subjective: * Chief Complaints: * S pot on knee swollen * HPI: G eneral: Rightn inner lower knee swelling - noticied it recently - -not sure about how long has been there. * Active Problem List K21.9 GERD (gastroesophage al reflux disease) Modified On:06/10/2024W/U Status:confirmed A63.0 Genital warts Modified On:06/10/2024/U Status:confirmed R53.83 Fatigue Modified On:06/10/2024U Status:confirmed Z00.00 Well adult Modified On:06/10/2024 Status:confirmed D18.00 Capillary hemangioma Modified On:06/10/2024 Status:confirmed K58.9 Irritable bowel Modified On:08/06/2024 Status:confirmed M54.12 Cervical radiculopat hy Modified On:08/06/2024 Status:confirmed M79.606 Leg pain Modified On:03/03/2025U Status:confirmed I88.1 Lymphadenitis, chron ic Modified On:03/03/2025 Status:confirmed * Medical History: * Surgical History: D enies Past Surgical History * Hospitalization/Major Diagno stic Procedure: D enies Past Hospitalization * Family History: F ather: . M other: alive, diagnosed with Unspecified heart disease. S ister(s): alive. 2 sister(s) - healthy. . * Social History: T obacco Use: T obacco Control (Standard) T obacco use: N onsmoker D rug/Alcohol: A LEO-C (Standard) D id you have a drink containing alcohol in the past year? N o P oints 0 I nterpretation N egative * Medications: T akingDiclofenac Sodium 75 MG Tablet Delayed Release 1 tablet as needed Orally Twice a day Metoprolol Tartrate 50 MG Tablet 1 tablet with food Orally Twice a day Omeprazole 40 MG Capsule Delayed Release 1 capsule 30 minutes before morning meal Orally Once a day Medication List reviewed and reconciled with the patientTaking Diclofenac Sodium 75 MG Tablet Delayed Release 1 tablet as needed Orally Twice a day Taking Metoprolol Tartrate 50 MG Tablet 1 tablet with food Orally Twice a day Taking Omeprazole 40 MG Capsule Delayed Release 1 capsule 30 minutes before morning meal Orally Once a day Medication List reviewed and reconciled with the patient * Allergies: N .K.D.A.no[Allergies Verified] Objective: * Vitals: W t:197lbs, Ht: 70 in, BP:144/96mm Hg, BMI:28.26Index, Ht-cm: 177.8 cm, Wt-k.36 kg. * Examination: A bdomen Exam:: L eft inner lowe knee with about 5 mm freelyu mobile mass - somewhat tender. Assessment: * Assessment: 1. L eg pain, right - M79.604 (Primary) 2 . L ymphadenitis, chronic - I88.1? 3. L ymphadenitis, acute - L04.9 Plan: * Treatment: * Procedure Codes: * * Sign off status: Completed Visit Status: C HK (Check Out) true * Provider: Blanca Gaona ([facility])MD Date: 03/03/2025 Generated for Elinai mira/Clemencia/eTransmitting on: 03/05/2025 03:58 PM EDT History and Physical Notes * HPI (History of Present Illness) Category Sub-Category Detail Notes Category Not es General Rightn inner lo wer knee swelling - noticied it recently - -not sure about how long has been there Examination Category Sub-Category Detail Notes Category Not es Abdomen Exam: Left inner low e knee with about 5 mm freelyu mobile mass - somewhat tender
--- NOTE | 2025-03-05 | XR_ITS ---
[place] [id number] Patient Name: FREDI POWER MRN: [id number] date: 1985 Sex: M Assigned Patient Location: RAD Current Patient Location: [facility] Accession/Order Number: [id number] Exam Date: 03/05/2025 21:09 Report Date: 03/05/2025 21:10 At the request of: ZHOU PABLO MD Procedure: XR tibia fibula RT 2V RIGHT TIBIA AND FIBULA -2 views CLINICAL HISTORY: Leg Pain, m79.606 COMPARISON: None FINDINGS: No fracture or dislocation. Soft tissues unremarkable. XR/XR tibia fibula RT 2V IMPRESSION: Negative acute osseous abnormality. Impression dictated by: Benigno Briceño M.D. 03/05/2025 9:10 PM Dictation Location: [place] [address] Electronically authenticated by: [id number] Y Date: 03/05/2025 21:10
--- OUTSIDE RECORDS SUMMARY | 2025-03-05 15:58 | XMS_ITS | Encounter Summary ---
Author Organization [employer] Address [id number] [address] [place] [address] Care Team Providers Care Chemical Dependency Attendant Name Role Phone Redd Ibrahim MD Primary Care Provider [phone] Reason for Visit * Reason Onset Date Comments Med Refill 09/01/2022 Encounter Details Date Type Department Care Team (Late st Contact Info) Description 09/01/2022 Refill [facility] Medicine/Pediatrics [address] [place] [address] 1 [place] [address] Redd Ibrahim MD [address] [place] [address], [address] [place] [address] Anxiety Social History Tobacco Use Types Packs/Day Years Used Date Smoking Tobacco: Former Smokeless Tobacco: Never Alcohol Use Standard Drinks/Week Comments Yes 0 (1 standard drink = 0.6 oz pur e alcohol) social Social Connection and Isolation Panel [NHANES] A nswer Date Recorded In a typical week, how many times do you talk on the phone with family, friends, or neighbors? Twice a week 07/25/20 How often do you get togethe r with friends or relatives? Never 07/25/2021 How often do you attend chur ch or lutheran services? 1 to 4 times per year 07/25/2021 Do you belong to any clubs o r organizations such as uatsdin groups, unions, fraternal or athletic groups, or school groups? No 07/25/2021 How often do you attend meet ings of the clubs or organizations you belong to? Never 07/25/2021 Are you , , di vorced, , never , or living with a partner? 07/25/2021 AUDIT-C Answer Date Recorded Q1: How often do you have a drink containing alc ohol? Monthly or less 07/25/2021 Q2: How many drinks containi ng alcohol do you have on a typical day when you are drinking? 3 or 4 07/25/2021 Q3: How often do you have si x or more drinks on one occasion? Less than monthly 07/25/2021 Overall Financial Resource Strain (CARDIA) Answe r Date Recorded How hard is it for you to pa y for the very basics like food, housing, medical care, and heating? Not very hard 07/25/2021 PHQ-2 Answer Date Recorded Total Score 16 07/25/2021 [facility] [place] of Occupat ional Health - Occupational Stress Questionnaire Answer Date Recorded Do you feel stress - tense, restless, nervous, or anxious, or unable to sleep at night because your mind is troubled all the time - these days? Very much 07/25/2021 Exercise Vital Sign Answer Date Recorde d On average, how many days pe r week do you engage in moderate to strenuous exercise (like a brisk walk)? 0 days 07/25/2021 On average, how many minutes do you engage in exercise at this level? 0 min 07/25/2021 PRAPARE - Transportation Answer Date Re corded In the past 12 months, has l ack of transportation kept you from medical appointments or from getting medications? No 06/29 In the past 12 months, has l ack of transportation kept you from meetings, work, or from getting things needed for daily living? No 07/25/2021 Childcare Answer Date Recorded Do problems getting child ca re make it difficult for you to work or study? No 07/25/2021 Employment Answer Date Recorded Do you need help finding a l ocal career center and/or a training program? No 07/25/2021 Purpose - Life Answer Date Recorded I have a purpose and direction in my life. Agree 07/25/2021 Education Answer Date Recorded What is the highest level of school you have completed or the highest degree you have received? Bachelor's degree (e.g., BA, AB, BS) 07/25/2021 Sex and Gender Information Value Date Recorded Sex Assigned at Male 12/02/2019 8:54 AM EDT Legal Sex Male 12:04 PM EDT Gender Identity Male 12/02/2019 8:54 AM EDT Sexual Orientation Straight 12/02/2019 8: 54 AM EDT documented as of this encounter Plan of Treatment Not on file documented as of this encounter Visit Diagnoses Diagnosis Anxiety Anxiety state, unspecified documented in this encounter Additional Health Concerns Assessment Noted Time PHQ-9 Depression Total Score: 16 021 12:42 PM EST documented as of this encounter Care Teams Chemical Dependency Attendant Relationship Specialty Start Date End Date Redd Ibrahim MD [address] [place] [address], [address] [place] [address] PCP - General Pediatrics 06/03/18 documented as of this encounter
--- OUTSIDE RECORDS SUMMARY | 2025-03-05 15:58 | XMS_ITS | Clinical Summary ---
Author Organization [facility] Address [address] [place] [address] Care Team Providers Care Bench Hand Name Role Phone Unavailable Primary Care Provider Unavailabl e Allergies No known active allergies Medications escitalopram oxalate (LEXAPRO) 10 mg tablet 07/25/2021 Active omeprazole (PRILOSEC) 20 mg capsule 07/26/2021 Active zolpidem (AMBIEN) 10 mg Take 10 mg by mouth. 07/26/2021 Active Family History Medical History Relation Comments Lymphoma Father Hypertension Mother Relation Status Comments Father Mother Social History Tobacco Use Types Packs/Day Years Used Date Smoking Tobacco: Former Cigarettes 1 18.5 0 09/08/2002 - 02/26/2021 Smokeless Tobacco: Never Alcohol Use Standard Drinks/Week Comments Not Currently 0 (1 standard drink = 0.6 oz pur e alcohol) 2 months since last drink Sex and Gender Information Value Date Recorded Sex Assigned at Male 08/20/2021 8:57 PM EST Legal Sex Male 3:33 PM EST Gender Identity Male 08/20/2021 8:57 PM EST Sexual Orientation Not on file Last Filed Vital Signs Vital Sign Reading Time Taken Comments Blood Pressure 133/83 09/08/2021 10:16 AM EST Pulse 72 09/08/2021 10:16 AM EST Temperature - - Respiratory Rate - - Oxygen Saturation 98% 09/08/2021 10:16 AM EST Inhaled Oxygen Concentration - - Weight 94.1 kg (207 lb 6.4 oz) 09/08/2021 10:16 AM EST Height 177.8 cm (5' 10 ) 09/08/2021 10:16 AM EST Body Mass Index 29.76 09/08/2021 10:16 AM EST Plan of Treatment Health Maintenance Due Date Last Done Comments Anxiety Screening 2002 Depression Screening 2002 HIV Screening 2002 Hepatitis C Screening 2002 DTaP,Tdap,Td Vaccine (1 - Tdap) 11/19/2003 Hepatitis B Vaccine (1 of 3 - 19+ 3-dose series) 11/19/2003 Influenza Vaccine (#1) 2025 , 07/27/2019, 05/24/2016 Lipid Screening 09/22/2025 09/22/2020 Insurance PPO
--- OUTSIDE RECORDS SUMMARY | 2025-03-05 15:58 | XMS_ITS | Encounter Summary ---
Author Organization [employer] Address [id number] [address] [place] [address] Care Team Providers Care Customer Advocacy Manager Name Role Phone Redd Ibrahim MD Primary Care Provider [phone] Reason for Visit * Reason Onset Date Comments Med Refill 08/24/2021 Encounter Details Date Type Department Care Team (Late st Contact Info) Description 08/24/2021 Refill [facility] [address] [place] [address] 1 [place] [address] Redd Ibrahim MD [address] [place] [address], [address] [place] [address] Anxiety Social History Tobacco Use [...] often do you attend chur ch or holiness services? 1 to 4 times per year 07/25/2021 Do you belong to any clubs o r organizations such as buddhism groups, unions, fraternal or athletic groups, or [...] Answer Date Recorded Total Score 16 07/25/2021 [facility] [place] of Occupat ional Health - Occupational Stress [...] Orientation Straight 12/02/2019 8: 54 AM EDT COVID-19 Exposure Response Date Recorded In the last month, have you been in contact with someone who was confirmed or suspected to have Coronavirus / COVID-19? No / Unsure 08/03/2021 1:47 PM EST documented as of this encounter Miscellaneous Notes * Telephone Encounter - Jessica Montiel CMA - 08/24/2021 9:21 AM EST Patient has 2 refills left documented in this encounter Plan of Treatment Not on file documented as of this encounter Visit Diagnoses Diagnosis Anxiety Anxiety state, unspecified documented in this encounter Additional Health Concerns Assessment Noted Time PHQ-9 Depression Total Score: 16 021 12:42 PM EST documented as of this encounter Care Teams Customer Advocacy Manager Relationship Specialty Start Date End Date Redd Ibrahim MD [address] [place] [address], [address] [place] [address] PCP - General Pediatrics 06/03/18 documented as of this encounter
--- OUTSIDE RECORDS SUMMARY | 2025-03-05 15:58 | XMS_ITS | Encounter Summary ---
Author Organization [employer] Address [id number] [address] [place] [address] Care Team Providers Care Phone Engineer Name Role Phone Redd Ibrahim MD Primary Care Provider [phone] Reason for Visit * Reason Onset Date Comments Med Refill 09/04/2022 Encounter Details Date Type Department Care Team (Late st Contact Info) Description 09/04/2022 Refill [facility] [address] [place] [address] 1 [place] [address] Redd Ibrahim MD [address] [place] [address], [address] [place] [address] Anxiety Social History Tobacco Use [...] often do you attend chur ch or nondenominational services? 1 to 4 times per year 07/25/2021 Do you belong to any clubs o r organizations such as sabianism groups, unions, fraternal or athletic groups, or [...] Answer Date Recorded Total Score 16 07/25/2021 [facility] [place] of Occupat ional Health - Occupational Stress [...] AM EDT documented as of this encounter Miscellaneous Notes * Telephone Encounter - Jessica Montiel CMA - 09/04/2022 4:45 PM EST PATIENT NEEDS AN APPOINTMENT FOR FURTHER REFILLS documented in this encounter Plan of Treatment Not on file documented as of this encounter Visit Diagnoses Diagnosis Anxiety Anxiety state, unspecified documented in this encounter Additional Health Concerns Assessment Noted Time PHQ-9 Depression Total Score: 16 021 12:42 PM EST documented as of this encounter Care Teams Phone Engineer Relationship Specialty Start Date End Date Redd Ibrahim MD [address] [place] [address], [address] [place] [address] PCP - General Pediatrics 06/03/18 documented as of this encounter
--- OUTSIDE RECORDS SUMMARY | 2025-03-05 15:59 | XMS_ITS | Encounter Summary ---
Author Organization [employer] Address [id number] [address] [place] [address] Care Team Providers Care Soap Worker Name Role Phone Redd Ibrahim MD Primary Care Provider [phone] Reason for Visit * Reason Onset Date Comments Med Refill 05/24/2023 Encounter Details Date Type Department Care Team (Late st Contact Info) Description 05/24/2023 Refill [facility] [address] [place] [address] 1 [place] [address] Redd Ibrahim MD [address] [place] [address], [address] [place] [address] Social History Tobacco Use Types Packs/Day Years [...] often do you attend chur ch or jain services? 1 to 4 times per year 07/25/2021 Do you belong to any clubs o r organizations such as mormon groups, unions, fraternal or athletic groups, or [...] Answer Date Recorded Total Score 16 07/25/2021 [facility] of Occupat ional Health - Occupational Stress [...] Telephone Encounter - Jessica Montiel CMA - 05/24/2023 6:59 PM EDT duplicate documented in this encounter Plan of Treatment Not on file documented as of this encounter Visit Diagnoses Not on filedocumented in this encounter Additional Health Concerns Assessment Noted Time PHQ-9 Depression Total Score: 16 021 12:42 PM EST documented as of this encounter Care Teams Soap Worker Relationship Specialty Start Date End Date Redd Ibrahim MD [address] [place] [address], [address] [place] [address] PCP - General Pediatrics 06/03/18 documented as of this encounter
--- OUTSIDE RECORDS SUMMARY | 2025-03-05 15:59 | XMS_ITS | Patient Health Record ---
Author Organization [facility] Address [address] [place], [place] [address] Care Team Providers Care Budget Examiner Name Role Phone Jerod Lugo Primary Care Provider [phone] Terri Jaffe Unavailable [phone] Allergies No Known Allergies Reason For Referral No Information Medications Medication SIG (Take, Route, Fr equency, Duration) Notes Start Date End Date Status Omeprazole 20 MG 1 capsule 30 minutes before morning meal Orally Once a day; Duration: 90 days Active Podofilox 0.5 % 1 application stop f or 4 days then repeat cycle Externally Twice a day 08/13/2023 Active Immunizations Vaccine Route Administration Date Status Comme nts *Tdap (Adacel)-Private IM Intramuscular 08/13/2023 Adminis tered Social History Tobacco Use: Social History Observation Description Date Details (start date - stop date) Former Smoker 01/05/2007 - 07/29/2021 Sex Assigned At : Social History Observation Description Sex Assigned At Male Tobacco Use/Smoking Question Answer Notes Tobacco use: former smoker patient enter ed data When did you start smoking? 01/05/2007 p atient entered data When did you stop smoking? 07/29/2021 edward tient entered data How long has it been since you last smoked? 6-12 months patient entered data CAGE-AID Questionnaire (2018 Edition) Question Answer Notes Have you ever felt that you ought to cut down on your drinking or drug use? No patient entered data Have people annoyed you by c riticizing your drinking or drug use? No patient entered data Have you ever felt bad or gu ilty about your drinking or drug use? No patient entered data Have you ever had a drink or used drugs first thing in the morning to steady your nerves or to get rid of a hangover? No patient entered data CAGE-AID Score 0 Interpretation Negative PRAPARE Question Answer Notes Date Completed/Updated: 1985 angelo nt entered data What is your current housing situation? I have housing patient entered data Are you worried about losing your housing? No patient entered data What is the highest level of school that you have finished? 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 Check all that apply I do not have problems meeting my needs Has lack of transportation k ept you from medical appointments, meetings, work or from getting things needed for daily living? No How often do you see or talk to people that you care about and feel close to? (For example: talking to friends on the phone, visiting friends or family, going to alevism or club meetings) Less than once a week patient entered data How stressed are you? Stress is when someone feels tense, nervous, anxious, or can't sleep at night because their mind is troubled Quite a bit patient entered data In the past year have you sp ent more than 2 nights in a row in a senior care, assisted, custodial center, or juvenile correctional facility? No patient entered camryn a Are you a refugee? No patient en tered data What country are you from? [place] edward camarena entered data Do you feel physically and emotionally safe where you currently live? Yes patient entered data In the past year, have you b een afraid of your partner or ex-partner? No patient entered data PRAPARE Score: 4 Encounters Encounter Location Date Provider Diagnosis Main [address] [place] [id number] 06/03/2024 Terri Jaffe Medication refill Z7 6.0 Assessments Encounter Date Diagnosis (ICD Code) Assessment Notes Treatment Notes Treatment Clinical Notes Section Notes 06/03/2024 Medication refill (ICD-10 - Z76.0) Plan Of Treatment No Information Insurance Providers Payer Name Payer Address Payer Phone Subscriber Number Group Number Insured Name Patient Relationship to Insured Coverage Start Date Coverage End Date [employer] [facility] [address] [place] [address] [id number] Neo Colon Self - patient is the insured 3 Medical (General) History Medical History History ICD Code GERD (gastroesophageal reflux disease) K 21.9 Surgical History Surgery Date(Month/Year) colonoscopy-[facility] 2010
--- OUTSIDE RECORDS SUMMARY | 2025-03-05 15:59 | XMS_ITS | Clinical Summary ---
Author Organization [employer] Address [facility] [id number] [address] [place] [address] Care Team Providers Care Office Machine Installer Name Role Phone Redd Ibrahim MD Primary Care Provider [phone] Allergies No known active allergies Medications podofilox (CONDYLOX) 0.5 % external solutionIndicat ions:Condyloma acuminata Apply topically 2 (two) times a day. Use for 3 days, hold for 4 days. Repeat as needed up to 4 times. 3.5 mL 3 Active omeprazole (PriLOSEC) 20 mg capsule TAKE ONE CAPSULE BY MOUTH TWICE A DAY 60 capsule 3 Active Active Problems No known active problems Immunizations Immunization Administration Dates Next Due Covid-19, Mrna, Lnp-s, Pf, 3 0 Mcg/0.3 Ml Dose, Brady-sucrose 10/10/2021 Influenza (IM) Preservative Free 07/30/2019 Influenza, Injectable, quadrivalent (PF) 016 Influenza, Unspecified 07/27/2019 Family History Medical History Relation Name Comments Lymphoma Father Aneurysm Mother Stroke Mother Relation Name Status Comments Father Alive Mother Alive Social History Tobacco Use Types Packs/Day Years Used Date Smoking Tobacco: Former Smokeless Tobacco: Never Tobacco Cessation:Counseling Given: No Alcohol Use Standard Drinks/Week Comments Yes 0 (1 standard drink = 0.6 oz pur e alcohol) social Social Connection and Isolation Panel [NHANES] A nswer Date Recorded In a typical week, how many times do you talk on the phone with family, friends, or neighbors? Twice a week 07/25/20 21 How often do you get togethe r with friends or relatives? Never 07/25/2021 How often do you attend chur ch or mosque services? 1 to 4 times per year 07/25/2021 Do you belong to any clubs o r organizations such as moravian groups, unions, fraternal or athletic groups, or [...] Answer Date Recorded Total Score 16 07/25/2021 [facility] [place] of Occupat ional Health - Occupational Stress [...] Recorded Do you need help finding a [facility] career center and/or a training program? No [...] Orientation Straight 12/02/2019 8: 54 AM EDT Last Filed Vital Signs Vital Sign Reading Time Taken Comments Blood Pressure 157/99 01/21/2023 11:05 AM EDT Pulse 93 01/21/2023 11:05 AM EDT Temperature 36.4 C (97.5 F) 08/03/2021 1:54 PM EST Respiratory Rate - - Oxygen Saturation - - Inhaled Oxygen Concentration - - Weight 96.2 kg (212 lb) 01/21/2023 11:05 AM EDT Height 175.9 cm (5' 9.25 ) 09/20/2020 3:23 PM ES T Body Mass Index 31.08 09/20/2020 3:23 PM EST Plan of Treatment Health Maintenance Due Date Last Done Comments Depression Screening 1996 Tobacco Screening 1996 DTaP,Tdap and Td Vaccines (1 - Tdap) 11/19/2003 Adult BMI Screening 01/22/2024 01/21/2023 COVID-19 Vaccine (4 - 2023-2 5 season) 2024 10/10/2021, 04/10/2021, 03/20/2021 Influenza Vaccine 03/29/2025 07/30/2019, , 05/24/2016 Medical Devices Not on [place] [address] [address] [place] [address] Care Teams Office Machine Installer Relationship Specialty Start Date End Date Redd Ibrahim MD [address] [place] [address], [address] [place] [address] PCP - General Pediatrics 06/03/18
--- OUTSIDE RECORDS SUMMARY | 2025-03-05 15:59 | XMS_ITS | Encounter Summary ---
Author Organization [employer] Address [facility] [address] [place] [address] Care Team Providers Care Ceo Ziff Davis Name Role Phone Redd Ibrahim MD Primary Care Provider [phone] Reason for Visit * Reason Onset Date Comments Med Refill 08/05/2023 Encounter Details Date Type Department Care Team (Late st Contact Info) Description 08/05/2023 Refill [facility] Internal Medicine[facility]s [address] [place] [address] [address] [place] [address] Redd Ibrahim MD [address] [place] [address], [address] [place] [address] Social History Tobacco Use Types [...] often do you attend chur ch or moravian services? 1 to 4 times per year 07/25/2021 Do you belong to any clubs o r organizations such as caodaism groups, unions, fraternal or athletic groups, or [...] Answer Date Recorded Total Score 16 07/25/2021 [facility] of Occupat ional Health - Occupational Stress [...] Noted Time PHQ-9 Depression Total Score: 16 07/25/ 021 12:42 PM EST documented as of this encounter Care Teams Ceo Ziff Davis Relationship Specialty Start Date End Date Redd Ibrahim MD [address] [place] [address], [address] [place] [address] PCP - General Pediatrics 06/03/18 documented as of this encounter
--- OUTSIDE RECORDS SUMMARY | 2025-03-05 15:59 | XMS_ITS | Patient Health Record ---
Author Organization [facility] [place] Address [address] [place] [address] Care Team Providers Care Cake Batter Mixer Name Role Phone Merrick Pablo Primary Care Provider Allergies No Known Allergies Results Component Value Reference Range Notes XR cervical spine 2-3V Reviewed date:08/09/2024 10:50:52 AM Interpretation: Performing Lab: Notes/Report: Source Facility: [place] [address] XRay Report Signed Patient: FREDI COLON MR#: [id number] : 1985 Acct:[id number] Age/Sex: 38 / M ADM Date: 08/06/24 Loc: RAD Attending Dr: Salazar Pablo M.D. Ordering Physician: Salazar Pablo M.D. Date of Service: 08/06/24 Procedure(s): XR cervical spine 2-3V Accession Number(s): [id number] cc: Salazar Pablo M.D. [place] [id number] Patient Name: FREDI COLON MRN: [id number] date: 1985 Sex: M Assigned Patient Location: RAD Current Patient Location: RAD Accession/Order Number: [id number] Exam Date: 08/06/2024 17:15 Report Date: 08/07/2024 08:40 At the request of: SALAZAR PABLO Procedure: XR cervical spine 2-3V EXAMINATION: XR cervical spine 2-3V HISTORY: Cervical Radiculopathy, M54.12 COMPARISON: No relevant comparison available. FINDINGS: BONES: No significant spondylosis, scoliosis, fracture, or visible bony lesion. DISC SPACES: Minimal narrowing C3-4. PARASPINOUS: Negative. No paraspinous abnormality is seen. OTHER: Negative. XR/XR cervical spine 2-3V IMPRESSION: 1. No appreciable acute abnormality. 2. Minimal degenerative changes. Electronically authenticated by: JACKSON HOLLEY Date: 08/07/2024 08:40 Dictated By: Jackson Holley M.D. Signed By: 08/07/24842 DD/ 9 TD/TT: Needle Punch Operator: [place] [address] XRay Report Signed Patient: LYUBOV COLON MR#: [id number] : 1985 Acct:[id number] Age/Sex: 38 / M ADM Date: 08/06/24 Loc: RAD Attending Dr: Alex Pablo M.D. Ordering Physician: Salazar Pablo M.D. Date of Service: 08/06/24 Procedure(s): XR cer vical spine 2-3V Accession Number(s): [id number] cc: Salazar Pablo M.D. [place] [address] Patient Name: FREDI COOLN MRN: [id number] date: 1985 Sex: M Assigned Patient Location: RAD Current Patient Loca tion: RAD Accession/Order Numb er: [id number] Exam Date: 08/06/2024 17:15 Report Date: 08/07/2024 08:40 At the request of: SALAZAR PABLO Procedure: XR cervic al spine 2-3V EXAMINATION: XR cerv ical spine 2-3V HISTORY: Cervical Radiculopathy, M54.12 COMPARISON: No relev ant comparison available. FINDINGS: BONES: No significan t spondylosis, scoliosis, fracture, or visible bony lesion. DISC SPACES: Minimal narrowing C3-4. PARASPINOUS: Negativ e. No paraspinous abnormality is seen. OTHER: Negative. X R/XR cervical spine 2-3V IMPRESSION: 1. No appreciable ac [place] abnormality. 2. Minimal degenerat gretchen changes. Electronically authenticated by: JACKSON HOLLEY Date: 08/07/2024 08:40 Dictated By: Jackson Holley M.D. Signed By: 08/07/2443 DD/ 9 TD/TT: Needle Punch Operator: XR acute abdomen series Reviewed date:08/09/2024 10:50:52 AM Interpretation: Performing Lab: Notes/Report: Source Facility: [place] [address] XRay Report Signed Patient: FREDI COLON MR#: [id number] : 1985 Acct:[id number] Age/Sex: 38 / M ADM Date: 08/06/24 Loc: RAD Attending Dr: Salazar Pablo M.D. Ordering Physician: Salazar Pablo M.D. Date of Service: 08/06/24 Procedure(s): XR acute abdomen series Accession Number(s): [id number] cc: Salazar Pablo M.D. [place] [address] Patient Name: FREDI COLON MRN: [id number] date: 1985 Sex: M Assigned Patient Location: [facility] Current Patient Location: Accession/Order Number: [id number] Exam Date: 08/06/2024 17:15 Report Date: 08/07/2024 08:39 At the request of: SALAZAR PABLO Procedure: XR acute abdomen series EXAMINATION: XR acute abdomen series HISTORY: Irritable bowel, K58.9 COMPARISON: No relevant comparison available. FINDINGS: LUNGS: No infiltrate, pneumothorax, or pleural effusion. MEDIASTINUM: No abnormal widening. BOWEL GAS PATTERN: Non-obstructed. Normal bowel gas pattern. FREE AIR: None. CALCIFICATIONS: None suspicious. BONES: No fracture or visible bone lesion. Mild curvature of thoracic and lumbar spine. OTHER: Negative. XR/XR acute abdomen series IMPRESSION: 1. No acute cardiopulmonary process. 2. Normal bowel gas pattern. No suspicious abdominal or pelvic findings. Electronically authenticated by: JACKSON HOLLEY Date: 08/07/2024 08:39 Dictated By: Jackson Holley M.D. Signed By: 08/07/24840 DD/ 8 TD/TT: Needle Punch Operator: [place] [address] XRay Report Signed Patient: LYUBOV COLON MR#: [id number] : 1985 Acct:[id number] Age/Sex: 38 / M ADM Date: 08/06/24 Loc: RAD Attending Dr: Alex Pablo M.D. Ordering Physician: Salazar Pablo M.D. Date of Service: 08/06/24 Procedure(s): XR acu te abdomen series Accession Number(s): [id number] cc: Salazar Pablo M.D. [place] [address] Patient Name: FREDI COLON MRN: [id number] date: 1985 Sex: M Assigned Patient Location: [facility] Current Patient Location: Accession/Order Numb er: [id number] Exam Date: 08/06/2024 17:15 Report Date: 08/07/2024 08:39 At the request of: SALAZAR PABLO Procedure: XR acute abdomen series EXAMINATION: XR acut e abdomen series HISTORY: Irritable b owel, K58.9 COMPARISON: No relev ant comparison available. FINDINGS: LUNGS: No infiltrate , pneumothorax, or pleural effusion. MEDIASTINUM: No abno rmal widening. BOWEL GAS PATTERN: Non-obstructed. Normal bowel gas pattern. FREE AIR: None. CALCIFICATIONS: None suspicious. BONES: No fracture o r visible bone lesion. Mild curvature of thoracic and lumbar spine. OTHER: Negative. X R/XR acute abdomen series IMPRESSION: 1. No acute cardiopulmonary process. 2. Normal bowel gas pattern. No suspicious abdominal or pelvic findings. Electronically authenticated by: JACKSON HOLLEY Date: 08/07/2024 08:39 Dictated By: Jackson Holley M.D. Signed By: 08/07/2441 DD/ TD/TT: Needle Punch Operator: LIVER PROFILE Reviewed date:12/03/2024 02:53:16 PM Interpretation: Performing Lab: Notes/Report: [facility] , Bilirubin Total 1.6 0.2-1.0 mg/dL Bilirubin Direct 0.2 0.0-0.2 mg/dL Aspartate Amino Transferase 26 15-37 U/L Alanine Aminotransferase 62 16-63 U/L Alkaline Phosphatase 43 46-116 U/L Total Protein 6.7 6.4-8.2 g/dL Albumin Level 3.8 3.4-5.0 g/dL Globulin 2.9 Albumin Globulin Ratio 1.3 Performing Lab: see note ML - [facility] US right upper quadrant Reviewed date:11/23/2024 07:41:09 PM Interpretation: Performing Lab: Notes/Report: Source Facility: [facility] [place] [address] Ultrasound Report Signed Patient: FREDI COLON MR#: [id number] : 1985 Acct:[id number] Age/Sex: 39 / M ADM Date: 11/21/24 Loc: US Attending Dr: Salazar Pablo M.D. Ordering Physician: Salazar Pablo M.D. Date of Service: 11/21/24 Procedure(s): US right upper quadrant Accession Number(s): [id number] cc: Salazar Pablo M.D. [place] [address] Patient Name: FREDI COLON MRN: [id number] date: 1985 Sex: M Assigned Patient Location: US Current Patient Location: Accession/Order Number: [id number] Exam Date: 11/23/2024 12:38 Report Date: 11/23/2024 12:39 At the request of: SALAZAR PABLO MD Procedure: US right upper quadrant LIMITED ABDOMINAL ULTRASOUND: CLINICAL HISTORY: elevated billirubin R17 COMPARISON: None TECHNIQUE: Grayscale and color Doppler images of the right upper quadrant organs were obtained. FINDINGS: Pancreas: Visualized portions appear unremarkable. Liver: Unremarkable. Gallbladder: Unremarkable. CBD: 4 mm RT KIDNEY: No Hydronephrosis US/US right upper quadrant IMPRESSION: NO ACUTE PROCESS. . Impression dictated by: Buddy King Jr., D.O. 11/23/2024 12:39 PM Dictation Location: [place] [address] Electronically authenticated by: [id number] Y Date: 11/23/2024 12:39 Dictated By: Buddy King M.D. Signed By: 11/23/24 1241 DD/ 1239 TD/TT: Needle Punch Operator: [place] [address] Ultrasound Report Signed Patient: LYUBOV COLON MR#: [id number] : 1985 Acct:[id number] Age/Sex: 39 / M ADM Date: 11/21/24 Loc: US Attending Dr: Alex Pablo M.D. Ordering Physician: Salazar Pablo M.D. Date of Service: 11/21/24 Procedure(s): US rig ht upper quadrant Accession Number(s): [id number] cc: Salazar Pablo M.D. [place] [id number] Patient Name: FREDI COLON MRN: [id number] date: 1985 Sex: M Assigned Patient Location: Current Patient Location: Accession/Order Numb er: [id number] Exam Date: 11/23/2024 12:38 Report Date: 11/23/2024 12:39 At the request of: SALAZAR PABLO MD Procedure: US right upper quadrant LIMITED ABDOMINAL ULTRASOUND: CLINICAL HISTORY: elevated billirubin R17 COMPARISON: None TECHNIQUE: Grayscale and color Doppler images of the right upper quadrant organs were obtained. FINDINGS: Pancreas: Visualized portions appear unremarkable. Liver: Unremarkable. Gallbladder: Unremarkable. CBD: 4 mm RT KIDNEY: No Hydronephrosis U S/US right upper quadrant IMPRESSION: NO ACUTE PROCESS. . Impression dictated by: Buddy King Jr., D.O. 11/23/2024 12:39 PM Dictation Location: [facility] Electronically authenticated by: [id number] Y Date: 11/23/2024 12:39 Dictated By: Buddy King M.D. Signed By: 11/23/24 1241 DD/ 1239 TD/TT: Needle Punch Operator: Reason For Referral No Information Medications Medication SIG (Take, Route, Frequency, Duration) [...] Problem Status W/U Status Risk Notes Problem Fatigue (26623039) Fatigue (R53.83) Active conf irmed Problem Gastroesophageal reflux disease (389031071) GERD (gastroesophagea l reflux disease) (K21.9) Active confirmed Problem Cervical radiculopathy (08993156) Cervical radiculopathy (M54.12) Active confirmed Problem Well adult (226916492) Well adult (Z00.00) Active confirmed Problem Leg pain (10202735) Leg pain (M79.606) Active confirmed Problem Genital warts (909255412) Genital warts (A63.0) Active confirmed Problem Irritable bowel (66704749) Irritable bowel (K58.9) Active confirmed Problem Capillary hemangioma (10325390) Capillary hemangioma (D18.00) Active confirmed Problem Chronic lymphadenitis (44020632) Lymphadenitis, chronic (I88.1) Active confirmed Vital Signs Temperature 99.0 degrees Fahrenheit 08/06/2024 Blood pressure diastolic 96 mm Hg 03/03/2025 Height 70 in 03/03/2025 Blood pressure systolic 144 mm Hg 03/03/2025 Weight 197 lbs 03/03/2025 BMI 28.26 kg/m2 03/03/2025 Encounters Encounter Location Date Provider Diagnosis [facility] [address] [place] [facility] [place] [address] 08/09/2024 Merrick Pablo [facility] [address] [place] [address] 11/08/2024 Merrick Pablo Elevated bilirubin R 17 [facility] [address] [place] [address] 11/23/2024 Merrick Pablo [facility] [address] [place] [address] 12/03/2024 Merrick Pablo [facility] [address] [place] [place] [address] 08/06/2024 Merrick Pablo [facility] [address] [place] [place] [address] 06/10/2024 Merrick Waltersy Fatigue R53.83 ; Wel l adult Z00.00 and Capillary hemangioma D18.00 [facility] [address] [place] [address] 08/06/2024 Merrick Waltersy Irritable bowel K58. 9 ; Cervical radiculopathy M54.12 and Encounter for other specified prophylactic measures Z29.89 [place] [address] [place] [address] 03/03/2025 Merrick Hoy Leg pain, right M79. 604 ; Lymphadenitis, chronic I88.1 and Lymphadenitis, acute L04.9 Assessments Encounter Date Diagnosis (ICD Code) Assessment Notes Treatment Notes Treatment Clinical Notes Section Notes 06/10/2024 Fatigue (ICD-10 - R53.83) may need sleep study 06/10/2024 Well adult (ICD-10 - Z00.00) 08/06/2024 Irritable bowel (ICD-10 - K58.9) 08/06/2024 Cervical radiculopathy (ICD-10 - M54.12) 03/03/2025 Leg pain, right (ICD-10 - M79.604) 03/03/2025 Lymphadenitis, chronic (ICD-10 - I88.1) 11/08/2024 Elevated bilirubin (ICD-10 - R17) 03/03/2025 Lymphadenitis, acute (ICD-10 - L04.9) 08/06/2024 Encounter for other specified prophylactic measures (ICD-10 - Z29.89) 06/10/2024 Capillary hemangioma (ICD-10 - D18.00) Plan Of Treatment Pending Test Test Name Order Date US Liver and Pancreas 11/08/2024 LIVER PROFILE 11/08/2024 XR ABD FLAT UP_PA CH 08/06/2024 XR TIB_FIB RT 2V 03/03/2025 US Gallbladder 11/08/2024 Insurance Providers Payer Name Payer Address Payer Phone Subscriber Number Group Number Insured Name Patient Relationship to Insured Coverage Start Date Coverage End Date O [address] [place], [place] [id number] [phone] [id number] Fredi Colon Self - patient is the insured Medical (General) History Medical History History ICD Code GERD (gastroesophageal reflux disease) K 21.9 Genital warts A63.0
--- OUTSIDE RECORDS SUMMARY | 2025-03-05 15:59 | XMS_ITS | Encounter Summary ---
Author Organization [employer] Address [facility] [place] [address] [place] [address] Care Team Providers Care Cigarette And Filter Chief Inspector Name Role Phone Redd Ibrahim MD Primary Care Provider [phone] Reason for Visit * Reason Onset Date Comments Med Refill 08/01/2021 Encounter Details Date Type Department Care Team (Late st Contact Info) Description 08/01/2021 Refill [facility] Internal Medicine/Pediatrics [address] [place] [address] [address] [place] [address] Redd Ibrahim MD [address] [place] [address], [address] [place] [address] Insomnia, unspecified type Social History Tobacco Use Types Packs/Day Years [...] often do you attend chur ch or adventist services? 1 to 4 times per year 07/25/2021 Do you belong to any clubs o r organizations such as yarsani groups, unions, fraternal or athletic groups, or [...] Answer Date Recorded Total Score 16 07/25/2021 [facility] of Occupat ional Health - Occupational Stress [...] PM EST documented as of this encounter Plan of Treatment Not on file documented as of this encounter Visit Diagnoses Diagnosis Insomnia, unspecified type documented in this encounter Additional Health Concerns Assessment Noted Time PHQ-9 Depression Total Score: 16 021 12:42 PM EST documented as of this encounter Care Teams Cigarette And Filter Chief Inspector Relationship Specialty Start Date End Date Redd Ibrahim MD [address] [place] [address], [address] [place] [address] PCP - General Pediatrics 06/03/18 documented as of this encounter
--- OUTSIDE RECORDS SUMMARY | 2025-03-05 16:17 | XMS_ITS | CCD ---
Author Organization [facility] Care Team Providers Care Agricultural Economics Teacher Name Role Phone Unavailable Primary Care Provider [...] CNOV Office Visit (OTMNCA ) FREDI COLON ([id number]) 1985 M Date Time Provider Department 09/08/21 [...] or dipping tobacco. 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 Father recently from lymphoma. FamHx: no personal [...] turbinates a (more content not included)... Normal [facility] CT NECK SOFT TISSUE W IVCONo n 09-08-2021 CT NECK SOFT TISSUE W IVCON * * *Final Report* * * DATE OF EXAM: Sep 08 2021 9:11AM [facility] [place], [place] 0013 - CT NECK SOFT TISSUE W [...] trouble swallowing. 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 Network Relay Tester: PSCB Transcribe Date/Time: Sep 08 2021 10:20A Dictated by : FALLON MARTINEZ MD This examination was interpreted and the report reviewed and electronically signed by: FALLON MARTINEZ MD on Sep 08 2021 10:31AM EST [id number] Normal [facility] CNOVon 08-21-2021 CNOV Office Visit (OTOLMN ) JANNETFREDI R ([id number]) 1985 M Date Time Provider Department 08/21/21 [...] [R22.1] Order(s):CT NECK SOFT TISSUE W IVCON [[id number]] Order #: [id number] FUTURE iv contrast (will be provided with [...] protocol i (more content not included)... Normal [facility] Vital Signs Date Time Vital Sign Value Performing Clinician Normi kendra 09-08-2021 10:16-0500 Body height 177.8 cm Fadi Strong MD Work Phone: [facility] 09-08-2021 10:16-0500 Body weight 94.08 kg Fadi Strong MD Work Phone: [facility] 09-08-2021 10:16-0500 Diastolic blood pressure 83 mm[Hg] Fadi Strong MD Work Phone: [facility] 09-08-2021 10:16-0500 Heart rate 72 /min Fadi Strong MD Work Phone: [facility] 09-08-2021 10:16-0500 SaO2% (BldA) [Mass fraction] 98 % Fadi Strong MD Work Phone: [facility] 09-08-2021 10:16-0500 Systolic blood pressure 133 mm[Hg] Fadi Strong MD Work Phone: [facility] Encounters Encounter Date Encounter Type Care Provider Facility Start: 09-08-2021 End: 09-08-2021 Patient encounter procedure Fadi Strong MD Work Phone: [facility] Comment on above: Congenital vascular malformation (Primary Dx) Plan of Treatment Date Care Activity Detail Author Start: 09-22-2025 LIPID SCREEN LIPID SCREEN [facility] Start: 03-29-2021 Influenza vaccination INFLUENZA (#1) [facility] Start: 11-19-2003 Urine microalbumin profile DTAP,TDAP ,TD (1 - Tdap) [facility] Start: 2002 HEPATITIS C SCREENING HEPATITIS C SC REENING [facility] Start: 2002 HIV SCREENING HIV SCREENING [facility] Start: 1996 Adult depression scr [facility] assessment DEPRESSION SCREENING [facility] Start: 1989 COVID-19 VACCINE (1) COVID-19 VACCIN E (1) [facility] Payers Date Payer Category Payer Unknown [employer] P[employer] [id number] 2017-Present [phone] [facility] [id number] [place] [address] PPO [id number] Social History Date Type Detail Facility Start: 08-21-2021 Tobacco smoking stat us NHIS Ex-smoker [facility] Start: 09-08-2002 End: 02-26-2021 History of tobacco use Current smoker [facility] Start: 09-08-2002 End: 02-26-2021 History of tobacco use Cigarette Smoker [facility] Start: 08-21-2021 Cigarettes smoked cu rrent (pack per day) - Reported 1 [facility] Start: 08-21-2021 Tobacco use and exposure Smoke less tobacco non-user [facility] Start: 09-08-2021 Alcohol intake Ex-drinker (finding) [facility] Start: 08-21-2021 History SDOH Alcohol Comment 2 months since last drink [facility] Start: 1985 Sex Assigned At Male [facility] Start: 08-09-2021 End: 09-08-2021 Exposure to SARS-CoV-2 (event) Not sure [facility] Progress note 09-08-2021 Note Date & Type Note Facility 09-08-2021 Note HNO ID: [id number] Author: Fadi Strong MD Service: ? Author [...] or dipping tobacco. 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 Father recently from lymphoma. FamHx: no personal [...] lesions or nota (more content not included)... [facility] Progress note 09-08-2021 Note Date & Type Note Facility 09-08-2021 Note HNO ID: [id number] Author: RT Maru(R) Service: Radiology Author Type: [...] RT Maru(R) September 08, 2021 9:11 AM [facility] Progress note 09-08-2021 Note Date & Type Note Facility 09-08-2021 Note HNO ID: [id number] Author: Sunita Banegas RN Service: Radiology Author [...] DATE: September 08, 2021 TIME: 9:00 AM [facility] History of Present illness Narrative 09-08-2021 Fadi [...] or dipping tobacco. 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 Father recently from lymphoma. FamHx: no personal [...] TIME: 10:42 AM documented in this encounter [facility] Nurse Note 09-08-2021 Ayah Winn Ma - 09/08/2021 10:13 AM EST Note Date & Type Note Facility 09-08-2021 Nurse Note Tobacco Use: 1 packs/day Quit 02/26/2021. Types: Cigarettes Was smoking cessation packet given? N/A - Patient is a non-smoker or quit >1 year ago. Was a referral initiated?N/A Patient is a non-smoker documented in this encounter [facility] Progress note 08-21-2021 Note Date & Type Note Facility 08-21-2021 Note HNO ID: [id number] Author: Will Orellana MD Service: ? 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, unspecified site documented in this encounter [facility] Summary Purpose Family History No Family History Records Found Advance Directives No Advanced Directives Records Found Additional Source Comments (unrecognized sect ion and content) No Status Records Found INFORMATION SOURCE (unrecogn ized section and content) DATE CREATED AUTHOR 10/22/2021 [facility] Source Comments (unrecognize d section and content) In the event this informatio n is protected by the Federal Confidentiality of Alcohol and Drug Abuse Patient Records regulations: The Federal rules restrict any use of the information to criminally investigate or prosecute any alcohol or drug abuse patient.[facility] Reason for Visit (unrecogniz ed section [...] ON THE PRIMARY CLINICAL RECORDS. [facility] provides no warranty or guarantee of the accuracy or completeness of information in this document.
== END 2025-03-05 15:57 | disposition home or self-care (01) ==
PROVIDERS: PCP Family Medicine; Visit Provider Family Medicine
DX: M79.606 Pain in leg, unspecified (principal)
CPT/HCPCS: 73590